=== PATIENT | female | born 1965 | race Caucasian/White ===

== ENCOUNTER 2020-02-04 13:10 | Outpatient (CLI) | payer MEDICARE, SELFPAY | END 2020-02-04 13:11 | disposition home or self-care (01) | LOC: ANHBWCAUD 13:38 | PROVIDERS: PCP Internal Medicine Infectious Disease; Visit Provider Otolaryngology | DX: H69.80 Other specified disorders of Eustachian tube, unspecified ear (principal) | CPT/HCPCS: 92557; 92567 ==